=== PATIENT | male | born 2000 | race Two or more races ===

== ENCOUNTER → 2022-07-10 | Emergency (ER) | payer OTHER ==
[~2022-07-10] VITALS: Ht 170.2 cm; Wt 79.4 kg
== END | disposition home or self-care (01) ==
LOC: ER 20:43
DX: S01.112A Laceration without foreign body of left eyelid and periocular area, initial encounter (principal); X58.XXXA Exposure to other specified factors, initial encounter; Y93.89 Activity, other specified; Y92.89 Other specified places as the place of occurrence of the external cause; Y99.9 Unspecified external cause status

== ENCOUNTER 2022-07-16 11:26 | Emergency (ER) | payer OTHER ==
[~2022-07-16] VITALS: Ht 170.2 cm; Wt 79.4 kg
== END 2022-07-16 13:17 | disposition home or self-care (01) ==
LOC: ER 11:26
DX: Z48.02 Encounter for removal of sutures (principal)